=== PATIENT | male | born 1975 | race Hispanic/Latino ===

== ENCOUNTER 2018-04-26 15:25 | Emergency (ER) | payer SELFPAY ==
[2018-04-26] MEDS ORDERED: TETANUS/DIPHTHERIA TOXOID [ADULT] 0.5 ML VIAL IM ONE (16:03)
[2018-04-26] MEDS ORDERED: HYDROCODONE/ACETAMINOPHEN 10/325 MG TAB ONE (16:03)
[2018-04-26] MEDS ORDERED: CEFAZOLIN SODIUM 1 GM VIAL ONE (16:06)
== END 2018-04-26 16:54 | disposition home or self-care (01) ==
LOC: EDH 15:25
DX: S67.01XA Crushing injury of right thumb, initial encounter (principal); E13.9 Other specified diabetes mellitus without complications; W23.0XXA Caught, crushed, jammed, or pinched between moving objects, initial encounter; Y93.89 Activity, other specified; Y92.89 Other specified places as the place of occurrence of the external cause; Y99.8 Other external cause status
CPT/HCPCS: 73130; 90471; 90714; 96372; 99283; A4218; J0690